=== PATIENT | female | born 1975 | race Caucasian/White ===

== ENCOUNTER 2020-04-17 10:37 | Outpatient (CLI) | payer SELFPAY ==
--- NOTE | 2020-04-17 10:47 | CT_ITS ---
WS: [id number] CT ABDOMEN AND PELVIS WITH CONTRAST HISTORY: ABDOMINAL PAIN, HEMATURIA, LEFT abdominal pain for 3 weeks. TECHNIQUE: Imaging performed of the abdomen and pelvis with IV contrast. Single phase imaging of the abdomen. Coronal and sagittal reformats are submitted. All CT scans at [facility] use at least one of these dose optimization techniques: automated exposure control; mA and/or kV adjustment per patient size (includes targeted exams where dose is matched to clinical indication); or iterativ e reconstruction. IV CONTRAST: Omnipaque 300; 95 mL IV. Oral contrast: No DLP: 1129.93 mGycm COMPARISON: None available. Lower thorax: Lung bases are clear. Heart is normal size. No hiatal hernia. Liver/biliary system: Normal size with no intrahepatic dilatation. Gallbladder: Normal. No gallstones or wall thickening. No pericholecystic fluid. Pancreas: Normal. Spleen: Normal. Adrenal glands: Normal RIGHT adrenal gland. Solid mass involving the LEFT adrenal gland measures 3.6 x 2.8 cm. Right kidney: Normal. Left kidney: There is a moderate staghorn calculus in the central renal pelvis causing a mild obstru ction. The largest component of the staghorn calculus is 13 x 22 mm. There are additional calcificati ons extending into the calyces of the lower pole. Ureter distal to this central calcification is norm al size. Aorta: Mild atherosclerosis with no aneurysm. Lymphadenopathy: None. Free fluid: None. GI tract: Normal appendix. No GI tract obstruction. Abdominal wall: Unremarkable abdominal wall. No hernia. Pelvis: There is a large soft tissue mass centered in the RIGHT uterus causing distortion of the endo metrium. This mass is nearly isodense to the adjacent myometrium. Mass measures 6.1 x 3.3 cm and is p robably a large fibroid. Both ovaries are identified and contain small follicles. Bones: Unremarkable. CT/CT abdomen pelvis w con* [id number] IMPRESSION: 1. Moderate-sized staghorn calculus in the LEFT renal pelvis and numerous calc ifications continue into the major and minor calyces of the lower pole. Staghor n calculus is causing a mild obstruction of the kidney with no adjacent inflamm atory changes. 2. Enlarged uterus. Probably a fibroid extending to the RIGHT measuring 8.1 x 3.3 cm. Recommend follow-up transvaginal pelvic ultrasound. 3. Solid mass LEFT adrenal gland. Statistically this is likely benign with no history of prior malignancy. Consider follow-up MRI adrenal protocol or CT prot ocol.
[2020-04-17] MEDS: iohexol 300 mg/mL 100 mL Btl IV (11:36)
== END 2020-04-17 10:38 | disposition home or self-care (01) ==
LOC: RADWPI 10:45
PROVIDERS: PCP Family Medicine; Visit Provider Family Medicine
DX: R10.9 Unspecified abdominal pain (principal); R31.9 Hematuria, unspecified; N20.0 Calculus of kidney; N85.2 Hypertrophy of uterus; D49.7 Neoplasm of unspecified behavior of endocrine glands and other parts of nervous system
CPT/HCPCS: 74177; Q9967

== ENCOUNTER 2020-04-23 07:42 | Outpatient (CLI) | payer SELFPAY ==
--- NOTE | 2020-04-23 07:50 | XRR_ITS ---
PROCEDURE INFORMATION: Exam: XR Abdomen, 1 View Exam date and time: 04/23/2020 8:03 AM Clinical indication: Pain and condition or disease; Kidney or ureter condition; Calculus (stone) in kidney; Other: Flank; Prior surgery; Surgery type: C cect TECHNIQUE: Imaging protocol: XR of the abdomen. Views: Frontal supine view of the abdomen. 1 View. COMPARISON: CT abdomen and pelvis 04/17/2020. FINDINGS: Gastrointestinal tract: Normal. No bowel dilation. Organs: Numerous calcifications overlie most likely the left renal shadow and a prominent, shaped larger calcification resides area medial to the left renal shadow likely at the left renal pelvis measuring 2.7 cm by 1.7 cm. Vasculature: Calcifications in the pelvis are suggestive of phleboliths. A punctate calcification resides 1.3 cm cranial to the upper left iliac bone demonstrated posteriorly at the gluteal level on comparison CT. Bones/joints: See Vasculature finding. XR/XR KUB [id number] IMPRESSION: Similar numerous left intrarenal calculi and large left renal pelvic calcification compared to the prior CT of 04/17/2020.
== END 2020-04-23 07:43 | disposition home or self-care (01) ==
PROVIDERS: PCP Family Medicine; Visit Provider Urology
DX: N20.0 Calculus of kidney (principal)
CPT/HCPCS: 74018; 87086

== ENCOUNTER → 2020-05-01 14:23 | Outpatient (BNVA) | payer SELFPAY | PROVIDERS: PCP Family Medicine; Visit Provider Urology | DX: Z20.822 Contact with and (suspected) exposure to COVID-19 (principal); N20.0 Calculus of kidney | CPT/HCPCS: 87635; 99211 ==

== ENCOUNTER 2020-05-04 11:48 | Day surgery (SDC) | payer SELFPAY ==
[2020-05-03 11:00] VITALS: BMI 31.0
--- NOTE | 2020-05-04 12:03 | XR_ITS ---
WS: [id number] KUB, AP view, 05/04/2020. Clinical Data: Preop left ESWL, stent Comparison: KUB, 04/23/2020. Findings: There are numerous small calcifications overlying the left inferior pole of the kidney. There is a st aghorn calculus in the left renal pelvis with greatest dimension of 2.8 cm unchanged. There are no ca lcifications overlying the right kidney. There are phleboliths in the true pelvis. XR/XR KUB [id number] Impression: No change in left renal and left renal pelvic calcifications.
[2020-05-04] MEDS: sodium chloride 0.9% 1,000 ML 30 ML IV (12:30)
--- NOTE | 2020-05-04 12:55 | ANES.PREANE2 ---
Pre-Anesthetic Assessment Pre-Anesthetic Assessment: Height/Weight: Height 1.63 m Weight 82.1 kg Preop Diagnosis: Left staghorn calculus Proposed Procedure: Operation Date: 05/04/20 13:25 Proposed Procedures p Cystoscopy(Not Applicable) - MD william Chapman Ureteral Stent Placement(Left) - MD william Chapman ESWL(Not Applicable) - MD william Chapman poss Ureteroscopy(Not Applicable) - MD william Chapman Laser Lithotripsy(Not Applicable) - Al Bonilla MD Was Beta Jass taken within 24 hours: Yes Last intake: Intake Last Liquid Date 05/04/20 Last Liquid Time 08:00 Last Solid Date 05/02/20 Last Solid Time 18:00 Social: Social History: Tobacco and No alcohol Exam: Pre-Anes Outpt Exam: alert, oriented x 3 and regular rate & rhythm Airway: Submandibular: WNL Cervical ROM: WNL MP: 2 Dentition: False Pulmonary: Pulmonary: COPD CV/HEM: CV/HEM: Arrythmia and HTN Metabolic: Metabolic: Morbid obesity Anesthetic Plan: ASA status: 3 Anesthesia: General Risk of > 500 ml blood loss (7ml/kg in children): No PFSH Anesthesia PFSH: Medical History H/O pilonidal cyst Left renal stone Surgical History H/O section S/P extracorporeal shock wave therapy Family History Mother , at age 64 Cancer lung Father , at age 78 Stroke Social History Smoking and tobacco status: current every day smoker Alcohol intake: never Marital status: Current occupational status: unemployed History of recent travel: No Female Reproductive History: Date of last menstrual period: 05/03/20 Data Anesthesia Cardiac Studies: No Data to Display
[2020-05-04 13:54] LABS: OR HCG Qualitative Urine Negative (Negative)
[2020-05-04 13:55] VITALS: BP 126/81; PULSE 67; RESP 18; TEMP 36.2; O2SAT 100
[2020-05-04] MEDS: levofloxacin-dextrose 5 % 500 MG/100 ML PREMIX 100 MG IV (16:41)
--- NOTE | 2020-05-04 16:51 | W.PM.OPSUD ---
Surgery/Procedure H&P Update DATE OF PROCEDURE: May 04, 2020 DATE H&P PERFORMED: 04/23/20 H&P UPDATE INFORMATION: I have reviewed H&P completed within last 30 days, I have examined patient prior to procedure, No changes to prior documentation and H&P is in [facility] EMR on date indicated PREOP DIAGNOSIS: Left staghorn calculus PLANNED PROCEDURE: Operation Date: 05/04/20 13:25 Proposed Procedures p Cystoscopy(Not Applicable) - MD william Chapman Ureteral Stent Placement(Left) - MD william Chapman ESWL(Not Applicable) - MD william Chapman poss Ureteroscopy(Not Applicable) - MD william Chapman Laser Lithotripsy(Not Applicable) - Al Bonilla MD
[2020-05-04 18:07] VITALS: BP 130/81; PULSE 81; RESP 17; TEMP 36.4; O2SAT 100
[2020-05-04 18:10] VITALS: BP 127/83; PULSE 78; RESP 14; O2SAT 100
--- NOTE | 2020-05-04 18:10 | P.OP_ITS ---
Operative Report Date of procedure: May 04, 2020 Pre-op Diagnosis: Left staghorn calculus with multiple smaller calyceal stones Post-op diagnosis: same Procedure Done: 1. Cystoscopy with left ureteral stent placement 2. Extracorporeal shockwave lithotripsy to left renal pelvic staghorn calculus Specimens removed/disposition: None Pathology: none sent Surgeon: Chad Facility Manager: Lithotripsy Chief Mechanical Officer: Kiran Tatum Anesthesia: General Estimated blood loss: None Urine output: Not measured Complications: None Findings: 2500 shocks administered to the large left renal pelvic staghorn calculus with good change. The entire complement of shocks was used for the stone and none of the calyceal/infundibular stones were treated. 7 Maltese by 24 cm double-pigtail stent left indwelling. No string Condition: stable Brief History: Mrs. Murray is a very pleasant 44-year-old white female who was discovered to have a large left renal pelvic staghorn calculus with multiple (15-20) smaller stones in the middle and lower pole infundibulum/calyceal system on the left. She was admitted for stent placement and ESWL after thorough discussion of all the options including endoscopy (retrograde and antegrade) versus ESWL with stent. We did review that based on the stone burden she was likely to require at least 2 treatments may be more in potentially multiple modalities to clear her stones. Procedure: After routine preoperative evaluation examination and obtaining of informed consent she was taken to the operating suite on 05/04/2020 where general anesthesia was administered without difficulty after appropriate timeout was performed, SCDs confirmed to be functioning, preoperative antibiotics administered, beta-yulisa protocol confirmed. Prepped and draped in the usual sterile fashion in dorsolithotomy position paying careful attention to avoiding pressure points. 21 Maltese cystoscope with 30 degree lens was introduced into the urethral meatus and advanced into the bladder to videoscopy. The bladder was systematically examined and found to be within normal limits. There were no stones. A flexible tip guidewire was then easily advanced up the left ureter bypassing the stone and curling in the upper pole calyx. A 7 Maltese by 24 cm double-pigtail stent was then advanced over the guidewire through the cystoscope up the left ureter beyond the stone curling in the appropriate position in the upper renal pelvis above the stone as well as distally in the bladder. She was then repositioned in supine position with the staghorn calculus of the focal point utilizing biplanar fluoroscopy and the shock head positioned posteriorly. A total of 2500 shocks were administered to the staghorn calculus with excellent change. She was placed in slight Trendelenburg, the intensity was begun at 1 and advanced to 4, a 3-minute pause was conducted after approximately 300 shocks, and real-time fluoroscopic monitoring with position changes as indicated. By the completion of the procedure (conducted at a rate of 60) the stone was dramatically changed. None of the smaller calyceal/infundibular stones were treated due to the full complement of shocks being administered to the staghorn calculus. She tolerated procedure well without complications and was awakened in the operating room and returned to the care of room in stable condition. PLANS: 1. Follow-up late next week with KUB. 2. Strain and bring any specimens passed. Call for any concerns or questions.
[2020-05-04 18:15] VITALS: BP 109/63; PULSE 72; RESP 18; TEMP 36.3; O2SAT 97
--- NOTE | 2020-05-04 18:17 | ANE.PACU2 ---
Inpatient post-anesthesia follow up: Airway intact: Yes Vital signs: Temperature 97.6 F Pulse Rate 78 Respiratory Rate 14 Blood Pressure 127/83 Pulse Oximetry 100 Oxygen Delivery Me thod Simple Mask Oxygen Flow Rate 8 Fraction of Inspir ed Oxygen Hydration adequate: Yes Nausea and vomiting: No Pain level: 1 Additional Comments: Sedated
[2020-05-04 18:20] VITALS: BP 139/65; PULSE 89; RESP 16; O2SAT 93
--- NOTE | 2020-05-04 18:24 | SUR.PHASEI ---
1817 PT AWAKE ALERT EATING ICE CHIPS DENIES PAIN AN NAUSEA PT WANTS SPRITE TO SIP ON , REPORT TO OPS HANDOFF AT BEDSIDE.
[2020-05-04] MEDS: ondansetron 2 mg/ML SDV 2 mL 4 MG IVP ×2 (18:40→19:08)
[2020-05-04 18:47] VITALS: BP 129/72; PULSE 67; RESP 16; TEMP 36.1; O2SAT 96
[2020-05-04] MEDS: diphenhydrAMINE 50 mg/mL SDV 1mL 12.5 MG IVP (19:00)
== END 2020-05-04 19:18 | disposition home or self-care (01) ==
PROVIDERS: Anesthesiology; PCP Family Medicine; Visit Provider Urology
PROC: 0TJB8ZZ Inspection of Bladder, Via Natural or Artificial Opening Endoscopic (ICD-10-PCS; CPT 52000; principal; 2020-05-04 13:25)
PROC: (CPT 50605; 2020-05-04 13:25)
PROC: (CPT 50590; 2020-05-04 13:25)
DX: N20.2 Calculus of kidney with calculus of ureter (principal); J44.9 Chronic obstructive pulmonary disease, unspecified; I10 Essential (primary) hypertension; E66.01 Morbid (severe) obesity due to excess calories; Z68.31 Body mass index [BMI] 31.0-31.9, adult; F17.210 Nicotine dependence, cigarettes, uncomplicated; Z79.82 Long term (current) use of aspirin
CPT/HCPCS: 50590; 52332; 74018; 84703; C2625; J1100; J1200; J1956; J2405; J2704; J3010; J3490; J7030

== ENCOUNTER 2020-05-25 08:05 | Outpatient (CLI) | payer SELFPAY ==
--- NOTE | 2020-05-25 08:00 | XR_ITS ---
WS: [id number] KUB, AP view, 05/25/2020 Clinical Data: stone Comparison: KUB, 05/04/2020. Findings: There is a left ureteral catheter in good position. The staghorn calculus is no longer present. There is a small fragment adjacent to the proximal ureteral catheter. The smaller fragments in the inferio r pole of the left kidney are no longer present. There are 2 moderate sized fragments which may be fr om the staghorn calculus overlying the kidney. In the distal left ureter there are multiple small pradeep cifications which are probably from the fragmented staghorn calculus. XR/XR KUB [id number] Impression: 1. Satisfactory position of left ureteral catheter. 2. Fewer fragments overlying left kidney which may be from the fragmented stagh orn calculus. 3. Small fragments in the distal left ureter adjacent to the ureteral catheter.
== END 2020-05-25 08:06 | disposition home or self-care (01) ==
LOC: RAD 08:08
PROVIDERS: PCP Family Medicine; Visit Provider Urology
DX: N20.0 Calculus of kidney (principal); Z96.0 Presence of urogenital implants
CPT/HCPCS: 74018; 81003; 82365; 88300

== ENCOUNTER → 2020-05-28 10:12 | Outpatient (BNVA) | payer SELFPAY | PROVIDERS: PCP Family Medicine; Visit Provider Internal Medicine Cardiovascular Disease | DX: Z20.822 Contact with and (suspected) exposure to COVID-19 (principal); N20.0 Calculus of kidney | CPT/HCPCS: 87635 ==

== ENCOUNTER 2020-06-01 11:21 | Day surgery (SDC) | payer SELFPAY ==
[2020-05-31 15:33] VITALS: BMI 31.7
[2020-06-01] VITALS (8 sets, daily range): BP systolic 122–154; BP diastolic 65–83; PULSE 60–84; RESP 14–18; TEMP 36.6–36.9; O2SAT 93–100
--- NOTE | 2020-06-01 11:42 | XR_ITS ---
WS: [id number] KUB, AP view, 06/01/2020 Clinical Data: Preop ESWL Comparison: KUB, 05/25/2020. Findings: There is still a calculus at the inferior pole of the left kidney. There is also a calculus adjacent to the proximal left ureteral stent. There are multiple calculi adjacent to the distal left ureteral stent. The ureteral stent appears in good position. There are phleboliths in the true pelvis. XR/XR KUB [id number] Impression: 1. Left ureteral stent. 2. Multiple left renal and ureteral calculi unchanged except there is only one inferior pole left renal calculus instead of 2.
[2020-06-01 11:51] LABS: OR HCG Qualitative Urine Negative (Negative)
[2020-06-01 12:27] LABS: Glucose Point of Care 225 mg/dL (70-110)
[2020-06-01] MEDS: sodium chloride 0.9% 1,000 ML 30 ML IV (12:28)
--- NOTE | 2020-06-01 12:43 | ANES.PREANE2 ---
Pre-Anesthetic Assessment Pre-Anesthetic Assessment: Height/Weight: Height 1.63 m Weight 83.915 kg Temp Pulse Resp BP Pulse Ox 98.1 F 73 16 145/83 100 06/01/20 11:50 06/01/20 11:50 06/01/20 11:50 06/01/20 11:50 06/01/20 11:50 Preop Diagnosis: Left ureteral and renal calculi Proposed Procedure: Operation Date: 06/01/20 13:00 Proposed Procedures p Cystoscopy 21187 03114 N20.0(Not Applicable) - Al Bonilla MD s Ureteral Stent Exchange(Not Applicable) - Al Bonilla MD s ESWL(Not Applicable) - Al Bonilla MD Was Beta Jass taken within 24 hours: Yes Last intake: Intake Last Liquid Date 05/31/20 Last Liquid Time 07:30 Last Solid Date 05/30/20 Last Solid Time 19:00 Social: Social History: Tobacco and No alcohol Exam: Pre-Anes Outpt Exam: alert, oriented x 3 and regular rate & rhythm Airway: Submandibular: WNL Cervical ROM: WNL MP: 2 Dentition: False Pulmonary: Pulmonary: COPD CV/HEM: CV/HEM: HTN Metabolic: Metabolic: DM Anesthetic Plan: ASA status: 3 Anesthesia: General Risk of > 500 ml blood loss (7ml/kg in children): No Meds/Allergies Current Medications: Current Medications Generic Name Dose Route Start Last Admin Trade Name Freq PRN Reason Stop Dose Admin Sodium Chloride 1,000 mls @ 30 ml s/hr 06/01/20 12:00 06/01/20 12:28 Sodium Chloride 0.9% IV 06/02/20 11:59 30 mls/hr .Q24H ALEXYS Administration PFSH Anesthesia PFSH: Medical History (Updated 05/25/20 @ 09:40 by Al Bonilla MD) Diabetes H/O pilonidal cyst Left renal stone Surgical History H/O section S/P extracorporeal shock wave therapy Family History Mother , at age 64 Cancer lung Father , at age 78 Stroke Social History Smoking and tobacco status: current every day smoker Alcohol intake: never Marital status: Current occupational status: unemployed History of recent travel: No Female Reproductive History: Date of last menstrual period: 05/03/20 Data Anesthesia Other Labs: Laboratory Results - last 48 hr 06/01/20 06/01/20 11:49 12:24 POC Glucose 225 H Urine HCG, Qual Negative Cardiac Studies: No Data to Display
[2020-06-01] MEDS: levofloxacin-dextrose 5 % 500 MG/100 ML PREMIX 100 MG IV (13:04)
--- NOTE | 2020-06-01 13:04 | P.HPUD_ITS ---
Surgery/Procedure H&P Update DATE OF PROCEDURE: June 01, 2020 DATE H&P PERFORMED: 05/25/20 H&P UPDATE INFORMATION: I have reviewed H&P completed within last 30 days, I have examined patient prior to procedure, No changes to prior documentation and H&P is in [facility] EMR on date indicated PREOP DIAGNOSIS: Left ureteral and renal calculi PLANNED PROCEDURE: Operation Date: 06/01/20 13:00 Proposed Procedures p Cystoscopy [id number] N20.0(Not Applicable) - Al Bonilla MD s Ureteral Stent Exchange(Not Applicable) - Al Bonilla MD s ESWL(Not Applicable) - Al Bonilla MD
--- NOTE | 2020-06-01 14:45 | PM.OP ---
Operative Report Date of procedure: June 01, 2020 Pre-op Diagnosis: Left ureteral and renal calculi Post-op diagnosis: same Procedure Done: 1. Extracorporeal shockwave lithotripsy to left renal and ureteral calculi fragments 2. Exchange left ureteral stent (7 Indonesian by 24 cm double-pigtail without string) Pathology: none sent Surgeon: Chad Report Analyst: Kiran Tatum Anesthesia: General Estimated blood loss: Minimal Urine output: Not measured Complications: None Findings: Excellent change of the renal stone fragments with ESWL. Approximately 1800 shocks administered. Shockwave therapy was administered along the length of the stent from the mid sacral level down to the distal ureter with good change noted to the multiple small stone fragments along the stent. Condition: stable Disposition: PACU Brief History: Mrs. Murray is a very pleasant 45-year-old white female with a history of large left renal pelvic stone and multiple small stones (numbering approximately 20-25) in the mid and lower pole infundibulum) previously treated with ESWL with excellent change to the renal pelvic stone. On follow-up KUB she had only a couple fragments remaining in the renal pelvic area and 100s of smaller stone fragments along the left ureteral stent from approximately the mid sacrum down to the distal ureter. It was decided to proceed with repeat ESWL to try to complete the job. We also reviewed that it might be required still for an additional treatment or a different modality to complete. Procedure: After routine preoperative evaluation examination and obtaining of informed consent she was taken to the operating suite on 06/01/2020 where general anesthesia was administered without difficulty after appropriate timeout was performed, SCDs confirmed to be functioning, preoperative antibiotics administered, beta-yulisa protocol confirmed. Positioned on the Dornier unit in supine position such that the renal stones were located the focal point with the shock head positioned posteriorly. Shockwave was initiated to the 2 fragments near the UPJ. There was early change. After about 300 shocks a several minute pause was conducted. A total of about 1800 shocks were administered to the renal area with good change. At that point the shock head was positioned anteriorly and the stone fragments in the more proximal aspect of the ureter in the area of the sacrum were targeted. Focus was easily obtained. The focal point was moved up and down the ureter several times with good change noted along the stream of small stones. About 7504-8067 shocks were administered in total to the ureteral components. She was then repositioned in dorsolithotomy position paying careful attention to avoiding pressure points. Prepped and draped in usual sterile fashion. 21 Indonesian cystoscope with 30 degree lens was introduced to urethra meatus and advanced into the bladder under videoscopy. The bladder was systematically examined. The stent was in good position with minimal encrustation. Flexible tip guidewire was then advanced up the left ureter next to the stent and curling in the upper pole calyx area. Stent was removed with grasping forceps with easy uncurling of the proximal end. A 7 Indonesian by 24 cm double-pigtail stent was then easily advanced up the left ureter over the guidewire into appropriate position as confirmed via fluoroscopy and cystoscopy. The bladder was drained and the procedure was completed. Tolerated the procedure well without complications and was awakened in the operating room and returned to the PACU in stable condition. PLANS: 1. Anticipate discharge from outpatient surgery today with follow-up next week 2. KUB on return to clinic 3. Continue straining urine.
--- NOTE | 2020-06-01 15:54 | ANE.PACU2 ---
Inpatient post-anesthesia follow up: Airway intact: Yes Vital signs: Temperature 97.9 F Pulse Rate 60 Respiratory Rate 18 Blood Pressure 136/70 Pulse Oximetry 97 Oxygen Delivery Me thod Room Air Oxygen Flow Rate Fraction of Inspir ed Oxygen Hydration adequate: Yes Nausea and vomiting: No Pain level: 2 Mental status: Baseline
== END 2020-06-01 16:11 | disposition home or self-care (01) ==
PROVIDERS: Anesthesiology; PCP Family Medicine; Visit Provider Urology
PROC: 0TJB8ZZ Inspection of Bladder, Via Natural or Artificial Opening Endoscopic (ICD-10-PCS; CPT 52000; principal; 2020-06-01 13:00)
PROC: (CPT 50590; 2020-06-01 13:00)
PROC: (CPT 50590; 2020-06-01 13:00)
DX: N20.2 Calculus of kidney with calculus of ureter (principal); J44.9 Chronic obstructive pulmonary disease, unspecified; I10 Essential (primary) hypertension; E11.9 Type 2 diabetes mellitus without complications; F17.210 Nicotine dependence, cigarettes, uncomplicated; Z79.82 Long term (current) use of aspirin
CPT/HCPCS: 50590; 52332; 36416; 74018; 82962; 84703; 96365; C2625; J1100; J1956; J2250; J2405; J2550; J2704; J2710; J3010; J3490; J7030

== ENCOUNTER 2020-06-08 08:10 | Outpatient (CLI) | payer SELFPAY ==
--- NOTE | 2020-06-08 08:00 | XR_ITS ---
WS: [id number] XR KUB [id number] REASON FOR EXAM: renal stone FINDINGS: Left ureteral stent. Compared to the previous examination of 06/01/2020, the dominant calculus overlying the lower pole of the left kidney is no longer identifiable. There continues to be small stone fragments associated with the left ureteral stent at the level of t he ureteral pelvic junction. There continues to be long segment of distal ureter containing small calculus fragments along the ian nt, extending from the mid sacral level to the ureteral vesicle junction. This is not changed signifi cantly compared to the previous study. No calculi There are multiple calcifications within the pelvis. There are 2 possibly 3 calcific densities that a re not readily identifiable on the previous examination in the low midline of the pelvis. These could represent small calculus fragments within the bladder. XR/XR KUB [id number] IMPRESSION: Left ureteral stent and urinary tract calculi with interval change as above.
== END 2020-06-08 08:11 | disposition home or self-care (01) ==
LOC: RAD 08:12
PROVIDERS: PCP Family Medicine; Visit Provider Urology
DX: N20.0 Calculus of kidney (principal); Z96.0 Presence of urogenital implants
CPT/HCPCS: 74018; 81003

== ENCOUNTER 2020-06-20 14:14 | Outpatient (CLI) | payer SELFPAY ==
--- NOTE | 2020-06-20 14:15 | XR_ITS ---
WS: [id number] KUB, 06/20/2020 Clinical Data: N20.0 - Calculus of kidney Comparison: KUB, 06/08/2020. Findings: There is a left ureteral stent. There are calcifications adjacent to the stent both in the proximal a nd the distal portion. There are several calcifications in the true pelvis but no change from the previous study. XR/XR KUB [id number] Impression: No change in left ureteral stent and adjacent small calcifications.
== END 2020-06-20 14:15 | disposition home or self-care (01) ==
LOC: RAD 14:19
PROVIDERS: PCP Family Medicine; Visit Provider Urology
DX: N20.0 Calculus of kidney (principal); Z96.0 Presence of urogenital implants
CPT/HCPCS: 74018; 81003; 87635

== ENCOUNTER 2020-06-25 12:05 | Day surgery (SDC) | payer SELFPAY ==
[2020-06-22 13:47] VITALS: BMI 31.7
[2020-06-25] VITALS (8 sets, daily range): BP systolic 130–162; BP diastolic 64–85; PULSE 58–80; RESP 16–18; TEMP 36.2–36.6; O2SAT 95–100
--- NOTE | 2020-06-25 12:10 | XRR_ITS ---
PROCEDURE INFORMATION: Exam: XR Abdomen Exam date and time: 06/25/2020 12:20 PM Age: 45 years old Clinical indication: Condition or disease; Kidney or ureter condition; Calculus (stone) in ureter; Additional info: Residual left ureteral calculi TECHNIQUE: Imaging protocol: XR of the abdomen. Views: Frontal supine view of the abdomen. 1 View. COMPARISON: CR XR KUB [id number] 06/20/2020 2:31 PM FINDINGS: Tubes, catheters and devices: A left ureteral stent projects in satisfactory position. Gastrointestinal tract: Normal. No bowel dilation. Vasculature: Multiple calcifications are present along the left ureteral stent. They have mildly decreased in number along the distal aspect of the stent. Bones/joints: Unremarkable. XR/XR KUB [id number] IMPRESSION: 1. Satisfactory left ureteral stent position. 2. Multiple calcifications project along the left ureteral stent. They have mildly decreased in number along the distal aspect since previous study.
[2020-06-25 12:54] LABS: Glucose Point of Care 199 mg/dL (70-110)
[2020-06-25 12:56] LABS: OR HCG Qualitative Urine Negative (Negative)
--- NOTE | 2020-06-25 13:11 | P.ANESASSM_ITS ---
Pre-Anesthetic Assessment Pre-Anesthetic Assessment: Height/Weight: Height 1.63 m Weight 83.915 kg Temp Pulse Resp BP Pulse Ox 97.6 F 60 16 162/78 99 06/25/20 12:42 06/25/20 12:42 06/25/20 12:42 06/25/20 12:42 06/25/20 12:42 Preop Diagnosis: Residual left ureteral calculi Proposed Procedure: Operation Date: 06/25/20 13:35 Proposed Procedures p Cystoscopy [id number] N20.0(Not Applicable) - Al Bonilla MD s Retrograde Pyelogram(Not Applicable) - MD william Chapman Ureteroscopy(Not Applicable) - MD william Chapman Laser Lithotripsy(Not Applicable) - MD william Chapman Ureteral Stent Placement(Not Applicable) - Al Bonilla MD Familial anesthetic complications: ponv Last intake: Intake Last Liquid Date 06/25/20 Last Liquid Time 07:30 Last Solid Date 06/24/20 Last Solid Time 21:30 Social: Social History: Tobacco and No alcohol Exam: Pre-Anes Outpt Exam: alert, oriented x 3, clear to auscultation bilatera lly and regular rate & rhythm Airway: Cervical ROM: WNL MP: 4 Dentition: Full CV/HEM: CV/HEM: HTN Anesthetic Plan: ASA status: 2 Anesthesia: General Risk of > 500 ml blood loss (7ml/kg in children): No PFSH Anesthesia PFSH: Medical History Diabetes H/O pilonidal cyst Left renal stone Surgical History H/O section S/P extracorporeal shock wave therapy Family History Mother , at age 64 Cancer lung Father , at age 78 Stroke Social History Smoking and tobacco status: current every day smoker Alcohol intake: never Marital status: Current occupational status: unemployed History of recent travel: No Female Reproductive History: Date of last menstrual period: 05/03/20 Data Anesthesia Other Labs: Laboratory Results - last 48 hr 06/25/20 06/25/20 12:33 12:52 POC Glucose 199 H Urine HCG, Qual Negative Cardiac Studies: No Data to Display
[2020-06-25] MEDS: midazolam 1 mg/mL INJ 2 mL 2 MG IVP (13:15)
[2020-06-25] MEDS: sodium chloride 0.9% 1,000 ML 30 ML IV (13:19)
--- NOTE | 2020-06-25 14:24 | W.PM.OPSUD ---
Surgery/Procedure H&P Update DATE OF PROCEDURE: June 25, 2020 DATE H&P PERFORMED: 06/20/20 H&P UPDATE INFORMATION: I have reviewed H&P completed within last 30 days, I have examined patient prior to procedure, No changes to prior documentation and H&P is in [facility] EMR on date indicated PREOP DIAGNOSIS: Residual left ureteral calculi PLANNED PROCEDURE: Operation Date: 06/25/20 13:35 Proposed Procedures p Cystoscopy 72885 [id number] N20.0(Not Applicable) - Al Bonilla MD s Retrograde Pyelogram(Not Applicable) - MD william Chapman Ureteroscopy(Not Applicable) - MD william Chapman Laser Lithotripsy(Not Applicable) - Al Bonilla MD s Ureteral Stent Placement(Not Applicable) - Al Bonilla MD
[2020-06-25] MEDS: levofloxacin-dextrose 5 % 500 MG/100 ML PREMIX 100 MG IV (14:43)
[2020-06-25] MEDS: ondansetron 2 mg/ML SDV 2 mL 4 MG IVP (16:48)
--- NOTE | 2020-06-25 16:59 | P.OP_ITS ---
Operative Report Date of procedure: June 25, 2020 Pre-op Diagnosis: Residual left ureteral calculi, adherent renal calculus to left renal pelvi Post-op diagnosis: same Post-op Findings: Approximately 35 to 40 stone fragments removed with basketing and grasping forceps from the left ureter. None required laser lithotripsy but it was quite arduous to get the ball out. A fairly sizable chunk of over the original stone was adherent to the left UPJ area but it was completely fragmented with laser lithotripsy and the sidewall of the renal pelvis was cleared of stone. Procedure Done: 1. Cystoscopy extraction of large number of left ureteral stone fragments 2. Left ureteroscopy with laser lithotripsy of UPJ stone fragment 3. Replacement of left ureteral stent (7 Icelandic by 24 Implants: Left ureteral stent Pathology: Stone fragments Surgeon: Chad Anesthesia: General Estimated blood loss: Minimal Urine output: not measured Complications: None Findings: Greater than 30 stone fragments in the ureter with most of them being over the sacral level and requiring basketing to remove. A few of them came out with the stent removal but many remained in the very inflamed mid ureter. All of these were extracted with a combination of basketing and grasping forceps. The ureter was very inflamed at this spot. There was an adherent chunk of the original stone on the left renal pelvic sidewall at the UPJ as expected. Laser lithotripsy was utilized to fragment this remaining piece into small pieces that would be easily passable. Condition: stable Disposition: PACU Brief History: Ms. Murray is a very pleasant 45-year-old white female who originally presented with a large left renal pelvic stone and probably close to 30 smaller stones in the mid and lower pole infundibulum and calyx. To date she has undergone 2 ESWL's with absolutely dramatic change. She has passed a large number of fragments from the ureter but on follow-up KUB she still had quite a few remaining. There is also a persistent calcification that appeared to probably be an adherent rim of calcification at the UPJ. It had diminished somewhat after the second treatment but was still quite prominent. The plan today was to perform a cystoscopy ureteral stent removal ureteroscopy with removal of fragments that did not flush out with the stent and ureteroscopy laser lithotripsy of the residual fragment at the UPJ. Procedure: After routine preoperative evaluation examination and obtaining of informed consent she was taken to the operating suite on 06/25/2020 where general anesthesia was administered without difficulty. There was a significant delay due to staffing but also multiple emergency add-ons that bumped this case. Appropriate timeout was performed, SCDs confirmed to be functioning, preoperative antibiotics administered, beta-yulisa protocol confirmed. Prepped and draped in usual sterile fashion in dorsolithotomy position paying careful attention to avoiding pressure points. 21 Icelandic cystoscope with 30 degree lens was introduced into the urethra meatus and advanced into the bladder under videoscopy. The distal aspect of the stent was secured with grasping forceps and withdrawn to the urethral meatus where a guidewire was passed up it without difficulty. The stent was then removed without difficulty with fluoroscopic monitoring showing good uncurling of the proximal end. The wire was secured to the drapes as a safety wire. Multiple stones were flushed out of the bladder that had come out with the guidewire. A second guidewire was attempted to be passed but would not easily bypassed the mid ureter where there was previously seen to be a collection of stones. A 7 Icelandic offset semirigid ureteroscope was advanced up the ureter and sure enough there was a large number of smaller to moderate sized stone fragments and these were individually removed with basketing and grasping forceps one by one. I expect that greater than 30 stone fragments were removed and this took quite a while. The area where the largest collection was was very inflamed but was bypassable with the scope. Proximal to that area there were another 5 or 6 of these fragments that were removed. This took about an hour and 10 minutes to do. A second guidewire was then passed as a working wire and the flexible ureteroscope was then advanced over the working wire up into the renal pelvis. As expected there was a chunk of stone adherent to the UPJ/renal pelvic wall and this was lasered with a 365 ?m thulium superpulse laser fiber off of the wall into small pieces that should easily pass. Final inspection showed no residual fragments of consequence. The inflamed ureter was again confirmed and it was clearly felt that the stent would be of benefit for healing of this area now that the stone fragments were out. The cystoscope was then backloaded over the safety wire and a 7 Icelandic by 24 cm double-pigtail stent was advanced over the guidewire through the cystoscope into appropriate position as confirmed via fluoroscopy and cystoscopy. All the fragments were flushed free from the bladder and the procedure was completed. She did tolerate the procedure well without complications and was awakened in the operating room and returned to the care of room in stable condition. PLANS: 1. Anticipate discharge from outpatient surgery 2. Follow-up in approximately 2 weeks with a KUB and hopefully remove the stent at that time. Reviewed findings with her .
--- NOTE | 2020-06-25 18:12 | ANE.PACU2 ---
Inpatient post-anesthesia follow up: Airway intact: Yes Vital signs: Temperature 98 F Pulse Rate 58 Respiratory Rate 16 Blood Pressure 149/64 Pulse Oximetry 98 Oxygen Delivery Me thod Room Air Oxygen Flow Rate 6 Fraction of Inspir ed Oxygen Hydration adequate: Yes Nausea and vomiting: No Pain level: 2 Mental status: Baseline
== END 2020-06-25 17:55 | disposition home or self-care (01) ==
PROVIDERS: PCP Family Medicine; Visit Provider Urology
PROC: 0TJB8ZZ Inspection of Bladder, Via Natural or Artificial Opening Endoscopic (ICD-10-PCS; CPT 52000; principal; 2020-06-25 13:35)
PROC: 0TJ98ZZ Inspection of Ureter, Via Natural or Artificial Opening Endoscopic (ICD-10-PCS; CPT 52351; 2020-06-25 13:35)
PROC: (CPT 52356; 2020-06-25 13:35)
PROC: (CPT 52356; 2020-06-25 13:35)
DX: N20.2 Calculus of kidney with calculus of ureter (principal); I10 Essential (primary) hypertension; F17.210 Nicotine dependence, cigarettes, uncomplicated
CPT/HCPCS: 52356; 36416; 74018; 81025; 82365; 82962; 84703; 88300; 96365; 96374; C2625; J1100; J1956; J2250; J2405; J2704; J3010; J3490; J7030

== ENCOUNTER 2020-07-10 07:33 | Outpatient (CLI) | payer SELFPAY ==
--- NOTE | 2020-07-10 07:30 | XRR_ITS ---
PROCEDURE INFORMATION: Exam: XR Abdomen Exam date and time: 07/10/2020 7:43 AM Age: 45 years old Clinical indication: Condition or disease; Kidney or ureter condition; Calculus (stone) in kidney; Prior surgery; Surgery type: Kidney stent; Additional info: N20.0 - calculus of kidney TECHNIQUE: Imaging protocol: XR of the abdomen. Views: Frontal supine view of the abdomen. 1 View. COMPARISON: CR XR KUB [id number] 06/25/2020 12:18 PM FINDINGS: Tubes, catheters and devices: A left ureteral stent projects in satisfactory position. Nearly all of the left ureteral calculi seen on the previous radiograph have cleared though there are just a few remaining punctate calculi lying along the distal aspect of the left ureteral stent. Gastrointestinal tract: Normal. No bowel dilation. Bones/joints: Unremarkable. XR/XR KUB [id number] IMPRESSION: 1. Satisfactory left ureteral stent position. 2. Nearly all of the tiny left ureteral calculi seen on previous study have cleared though just a few faint punctate calculi remain along the distal ureteral stent.
== END 2020-07-10 07:34 | disposition home or self-care (01) ==
LOC: RAD 07:38
PROVIDERS: PCP Family Medicine; Visit Provider Urology
DX: N20.2 Calculus of kidney with calculus of ureter (principal); Z96.0 Presence of urogenital implants
CPT/HCPCS: 74018; 81003

== ENCOUNTER → 2020-08-15 09:16 | Outpatient (BNVA) | payer SELFPAY | PROVIDERS: PCP Family Medicine; Visit Provider Urology | DX: N20.9 Urinary calculus, unspecified (principal) | CPT/HCPCS: 80048; 81003; 82131; 82140; 82340; 82436; 82507; 82570; 83735; 83935; 84100; 84300; 84550 ==

== ENCOUNTER 2020-10-30 21:51 | Emergency (ER) | payer SELFPAY ==
[2020-10-30 22:01] VITALS: BP 146/91; PULSE 67; RESP 18; TEMP 36.4; O2SAT 100; BMI 26.4
--- NOTE | 2020-10-30 22:20 | XRR_ITS ---
PROCEDURE INFORMATION: Exam: XR Chest Exam date and time: 10/30/2020 10:20 PM Age: 45 years old Clinical indication: Shortness of breath; Additional info: Chest pain TECHNIQUE: Imaging protocol: XR of the chest. Views: 1 view. COMPARISON: CR Chest 2 views* [id number] 12/30/2016 7:47 PM FINDINGS: Lungs: Unremarkable. No consolidation. Pleural spaces: Unremarkable. No pleural effusion. No pneumothorax. Heart/Mediastinum: Unremarkable. No cardiomegaly. Bones/joints: Unremarkable. XR/XR chest 1V portable [id number] IMPRESSION: No acute findings.
--- NOTE | 2020-10-30 22:20 | ECG_ITS ---
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 Measurements Intervals [place] Rate: 66 P: 55 NC: 153 QRS: -60 QRSD: 130 T: 57 QT: 427 QTc: 449 Interpretive Statements SINUS RHYTHM MARKED LEFT AXIS DEVIATION [QRS AXIS < -30] LEFT BUNDLE BRANCH BLOCK [120+ ms QRS DURATION, 80+ ms Q/S IN V1/V2, 85+ ms R IN I/aVL/V5/V6] Compared to ECG 12/31/2016 15:38:14 No significant changes Electronically Signed On 11-01-2020 7:40:30 CDT by Shoshana Lenz M.D. [id number] f
--- NOTE | 2020-10-30 23:08 | W.ED.ANXIETY ---
HPI - Anxiety General: Chief Complaint: Anxiety Stated Complaint: Heart Palpatations Time Seen by Provider: 10/30/20 22:37 History of Present Illness: HPI narrative: Patient is a 45-year-old female comes to the ED with panic attack and elevated blood pressure. Patient recently lost a lot of weight and her blood pressure has improved and her PCP took her off all of her blood pressure medications approximately 6 days ago. Today she had a blood pressure of a systolic in the 160s and diastolic in the 90s. She started getting worried and anxious about the elevated blood pressure and developed a panic attack with some heart palpitations. Patient took a dose of her metoprolol before coming to the ED. Her symptoms have completely resolved upon arrival to the ED. She denies any current chest pain or heart palpitations. Denies any history of A. fib or any other heart arrhythmia. Associated symptoms: Reports palpitations; Deny chest pain, chills, fever(s), headache(s), nausea or vomiting Review of Systems Const: Denies: fever(s), chills or fatigue Eyes: Denies: change in vision or eye discomfort ENMT: Denies: throat pain, odynophagia, nasal discharge or nasal congestion Card: Reports: palpitations; Denies: chest pain, edema, swelling of feet/ankles, dyspnea on exertion or orthopnea Resp: Denies: dyspnea, productive cough or non-productive cough GI: Denies: abdominal pain, nausea, vomiting, diarrhea, constipation or hematochezia : Denies: flank pain, dysuria or hematuria Musc: Denies: neck pain, back pain or extremity swelling Skin/Breast: Denies: rash or new lesions Neuro: Denies: headache(s), numbness in extremities or weakness in extremities Psych: Reports: panic attacks (episode of panic attack resolved upon arrival to ED) PFSH ED PFSH: Medical History Diabetes H/O pilonidal cyst Left renal stone Surgical History H/O section S/P extracorporeal shock wave therapy Family History Mother , at age 64 Cancer lung Father , at age 78 Stroke Social History Smoking and tobacco status: current every day smoker Alcohol intake: never Marital status: Current occupational status: unemployed History of recent travel: No Female Reproductive History: Date of last menstrual period: 05/03/20 Physical Exam Narrative: EXAM NARRATIVE: Patient is a 45-year-old female appears nontoxic and in no acute distress or pain. Const: COMMON NORMALS: no acute distress, patient oriented x3, healthy appearing and alert GENERAL APPEARANCE: cooperative and comfortable HENMT: COMMON NORMALS: normocephalic HEAD & SCALP: normocephalic MOUTH: Normal oral and palatal mucosa present THROAT: posterior oropharynx normal and uvula midline Neck/C-Spine: COMMON NORMALS: supple GENERAL: Yes normal visual inspection Resp: COMMON NORMALS: normal respiratory effort, No retractions, No use of accessory muscles and clear to auscultation bilaterally AUSCULTATION: clear to auscultation bilaterally Cardio: COMMON NORMALS: regular rate, regular rhythm, S1 normal heart sound present, S2 normal heart sound present, No gallops present (Cardio), No clicks present (Cardio), No murmurs present (Cardio) and Peripheral pulses 2+ throughout RATE: regular rate RHYTHM: regular rhythm HEART SOUNDS: S1 normal heart sound present and S2 normal heart sound present PERIPHERAL PULSES: Peripheral pulses 2+ throughout GI: COMMON NORMALS: Normal to inspection, nondistended, normoactive bowel sounds present, Soft to palpation, non-tender and no masses PALPATION: Yes Soft to palpation : COMMON NORMALS: Yes no CVA tenderness BLADDER/KIDNEY EXAM: Yes no CVA tenderness Back/Pelvis: COMMON NORMALS: no CVA tenderness Extremity: COMMON NORMALS: normal to inspection Neuro: COMMON NORMALS: patient oriented x3 and moves all extremities SENSORIUM/ORIENTATION: Yes alert Skin: GENERAL SKIN EXAM: dry skin Course Vital Signs: Vital signs: Vital Signs Temperature 97.6 F 10/30/20 22:01 Pulse Rate 67 10/31/20 02:08 Respiratory Rate 18 10/31/20 02:08 Blood Pressure 144/81 10/31/20 02:08 Pulse Oximetry 99 10/31/20 02:08 MDM - Anxiety MDM Narrative: Medical decision making narrative: Patient is a 45-year-old female comes to the ED with elevated blood pressure, heart palpitations and acute anxiety. Patient says when she was checking her blood pressure saw that it was elevated (160s/90s) and she got stressed and anxious about blood pressure reading and then started developing anxiety attack with some chest pain. Patient took her metoprolol before coming to the ED and says that her symptoms completely resolved upon arrival. Patient is asymptomatic while here in the ED and her vitals are stable. Blood pressure 146/91. Troponin negative, labs unremarkable and EKG showed normal sinus rhythm with no ST segment elevation or depression seen. Chest x-ray showed no acute findings. Patient was diagnosed with acute anxiety and hypertension and discharged home. She was told to continue taking her previously prescribed meds and to continually check her blood pressure multiple times throughout the day. She was told to follow-up with her PCP and 5 to 7 days for reevaluation. Return to ED precautions given. Patient understood agree with plan. Imaging Data^: CXR: Attestation: I personally reviewed and interpreted this imaging study as follows: Radiologist's impression: [address] [id number] ReportSigned Patient: Cindy Murray #: [id number]: 1975Acct#:[id number]/Sex: 45 / FADM Date: 10/30/20Loc: [facility]/Bed:Attending Dr: Ordering Provider/Ordering MD: Paul Amador MD Date of Service: 10/30/20 Procedure(s): XR chest 1V portable [id number] Accession Number(s): [id number] Report Number: [id number] PROCEDURE INFORMATION: Exam: XR Chest Exam date and time: 10/30/2020 10:20 PM Age: 45 years old Clinical indication: Shortness of breath; Additional info: Chest pain TECHNIQUE: Imaging protocol: XR of the chest. Views: 1 view. COMPARISON: CR Chest 2 views* [id number] 12/30/2016 7:47 PM FINDINGS: Lungs: Unremarkable. No consolidation. Pleural spaces: Unremarkable. No pleural effusion. No pneumothorax. Heart/Mediastinum: Unremarkable. No cardiomegaly. Bones/joints: Unremarkable. XR/XR chest 1V portable [id number] IMPRESSION: No acute findings. Dictated By:Trinity Wilson By:Trinity Wilson Date/Time:10/30/202DD/ 10 EKG Data^: EKG 1: Attestation: I personally reviewed and interpreted this EKG as follows: EKG interpretation date: 10/30/20 Interpretation: Chest X-Ray 10/30/20 22:20 IMPRESSION: No acute findings. Normal sinus rhythm, 66 bpm, no ST segment elevation or depression noted. Other EKG comments: Chest X-Ray 10/30/20 22:20 IMPRESSION: No acute findings. Lab Data: Labs: Lab Results 10/30/20 10/30/20 10/30/20 Range/Units 23:20 23:20 23:20 WBC 7.9 (4.0-10.0) 10^3/ uL RBC 4.35 (4.1-5.3) 10^6/u L Hgb 13.8 (11.5-15.3) g/dL Hct 40.8 (37.0-47.0) % MCV 93.8 (81-99) fL MCH 31.7 (28.0-34.0) pg MCHC 33.8 (30.0-36.0) g/dL RDW 12.8 (12.1-15.1) % Plt Count 266 (130-400) 10^3/c mm MPV 10.1 (7.4-10.4) fL Neut % (Auto) 62.2 % Lymph % (Auto) 24.9 % [place] % (Auto) 8.3 % Eos % (Auto) 3.4 % Baso % (Auto) 0.9 % Neut # (Auto) 4.93 (1.8-7.7) 10^3/u L Lymph # (Auto) 2.0 (0.8-4.8) 10^3/u L [place] # (Auto) 0.7 (0.2-0.9) 10^3/u L Eos # (Auto) 0.3 (0.0-0.8) 10^3/u L Baso # (Auto) 0.1 (0.0-0.1) 10^3/u L Nucleated RBC % (a uto) 0 % Nucleated RBCs # 0.0 /100WBC Sodium 132 L (136-145) mmol/L Potassium 3.7 (3.5-5.1) mmol/L Chloride 95 L (98-107) mmol/L Carbon Dioxide 18 L (22-29) mmol/L Anion Gap 22.7 H (5-19) BUN 10 (6-20) mg/dL Creatinine 0.5 (0.5-0.9) mg/dL GFR Calculation 132.2 H (90-130) mL/min Glucose 202 H (65-115) mg/dL Calculated Osmolal ity 279 L (285-295) mOsm/k g Calcium 8.5 (8.5-10.5) mg/dL Troponin T Gen 5 n g/L 17 H (0-10) ng/L 10/31/20 Range/Units 01:02 WBC (4.0-10.0) 10^3/ uL RBC (4.1-5.3) 10^6/u L Hgb (11.5-15.3) g/dL Hct (37.0-47.0) % MCV (81-99) fL MCH (28.0-34.0) pg MCHC (30.0-36.0) g/dL RDW (12.1-15.1) % Plt Count (130-400) 10^3/c mm MPV (7.4-10.4) fL Neut % (Auto) % Lymph % (Auto) % [place] % (Auto) % Eos % (Auto) % Baso % (Auto) % Neut # (Auto) (1.8-7.7) 10^3/u L Lymph # (Auto) (0.8-4.8) 10^3/u L [place] # (Auto) (0.2-0.9) 10^3/u L Eos # (Auto) (0.0-0.8) 10^3/u L Baso # (Auto) (0.0-0.1) 10^3/u L Nucleated RBC % (a uto) % Nucleated RBCs # /100WBC Sodium (136-145) mmol/L Potassium (3.5-5.1) mmol/L Chloride (98-107) mmol/L Carbon Dioxide (22-29) mmol/L Anion Gap (5-19) BUN (6-20) mg/dL Creatinine (0.5-0.9) mg/dL GFR Calculation (90-130) mL/min Glucose (65-115) mg/dL Calculated Osmolal ity (285-295) mOsm/k g Calcium (8.5-10.5) mg/dL Troponin T Gen 5 n g/L 19 H (0-10) ng/L Discharge Plan Discharge Patient Disposition: Home Clinical Impression: Acute anxiety Hypertension Qualifiers: Hypertension type: unspecified Qualified Code(s): I10 - Essential (primary) hypertension Condition: Stable Prescriptions: No Action metformin 1,000 mg tablet 1,000 mg PO BID RF: 0 metoprolol tartrate 100 mg tablet 100 mg PO .1/2 tablet tid RF: 0 triamterene-hydrochlorothiazid 37.5-25 mg capsule 1 cap PO DAILY RF: 0 aspirin 81 mg tablet,delayed release (DR/EC) 81 mg PO DAILY RF: 0 Hold Instructions: Resume on 06/29/20. mecobalamin (vitamin B12) 1,000 mcg tablet,chewable 1,000 mcg PO DAILY RF: 0 magnesium miscellaneous RF: 0 multivitamin Tablet 1 tab PO DAILY RF: 0 Adult 50 Plus Probiotic 4 billion cell capsule PO RF: 0 Discharge Orders: Discharge ED (Routine); Ordered 10/31/20 Ordered By: Yoseph Oneill Discharge Diet: Regular Discharge Activity: Increase activity as tolerated Patient Instructions: Hypertension (ED), Anxiety (ED) Activity Restrictions/Additional Instructions: Follow-up with your PCP in the next 5 to 7 days for reevaluation. Continue monitoring your blood pressures multiple times throughout the day. .Return to the ER or your medical provider if condition worsens. Please read and understand discharge instructions. Thank you for choosing [facility] for your healthcare needs today. Please realize this is an emergency room and that we are providing you with a medical screening exam and this may not be complete and all inclusive of all the testing and or work up that you may need to determine your ailment or severity of your illness. It is very important that you follow up as instructed or that you return to the Emergency Department should you have concerns or if your condition changes or worsens in any way. Coding Level of Care Code ED Harvest Worker Fruit for Jair Rojas Exam Comprehensive
[2020-10-30 23:30] LABS: Basophils # 0.1 10^3/uL (0.0-0.1); Basophils % 0.9 %; Eosinophils # 0.3 10^3/uL (0.0-0.8); Eosinophils % 3.4 %; Hematocrit 40.8 % (37.0-47.0); Hemoglobin 13.8 g/dL (11.5-15.3); Lymphocytes % 24.9 %; Mean Corpuscular HGB Conc 33.8 g/dL (30.0-36.0); Mean Corpuscular Hemoglobin 31.7 pg (28.0-34.0); Mean Corpuscular Volume 93.8 fL (81-99); Mean Platelet Volume 10.1 fL (7.4-10.4); Monocytes # 0.7 10^3/uL (0.2-0.9); Monocytes % 8.3 %; Neutrophils # 4.93 10^3/uL (1.8-7.7); Neutrophils % 62.2 %; Nucleated Red Blood Cells % 0 %; Platelet Count 266 10^3/cmm (130-400); Red Blood Count 4.35 10^6/uL (4.1-5.3); Red Cell Distribution Width 12.8 % (12.1-15.1); White Blood Count 7.9 10^3/uL (4.0-10.0)
[2020-10-30 23:35] LABS: Slide Review Slide Review Perform
[2020-10-30 23:53] LABS: Troponin T (5th) Once 17 ng/L (0-10)
[2020-10-30 23:54] LABS: Blood Urea Nitrogen 10 mg/dL (6-20); Calcium 8.5 mg/dL (8.5-10.5); Carbon Dioxide 18 mmol/L (22-29); Chloride 95 mmol/L (98-107); Glomerular Filtration Rate 132.2 mL/min (90-130); Glucose 202 mg/dL (65-115); Osmolality Calculated 279 mOsm/kg (285-295); Sodium 132 mmol/L (136-145)
[2020-10-30 23:59] LABS: Anion Gap 22.7 (5-19); Potassium 3.7 mmol/L (3.5-5.1)
[2020-10-31 00:36] VITALS: BP 142/90; PULSE 65; RESP 16; O2SAT 99
[2020-10-31 01:32] LABS: Troponin T (5th) Once 19 ng/L (0-10)
[2020-10-31 02:08] VITALS: BP 144/81; PULSE 67; RESP 18; O2SAT 99
== END 2020-10-31 02:10 | disposition home or self-care (01) ==
PROVIDERS: Emergency Medicine; Emergency Provider Physician Assistant
DX: F41.9 Anxiety disorder, unspecified (principal); I10 Essential (primary) hypertension; E11.9 Type 2 diabetes mellitus without complications; F17.200 Nicotine dependence, unspecified, uncomplicated; Z79.84 Long term (current) use of oral hypoglycemic drugs
CPT/HCPCS: 71045; 80048; 84484; 85025; 93005; 99283

== ENCOUNTER 2022-10-28 07:16 | Emergency (ER) | payer SELFPAY ==
[2022-10-28 07:22] VITALS: BP 183/75; PULSE 63; RESP 20; TEMP 36.3; O2SAT 98
--- NOTE | 2022-10-28 07:31 | XRR_ITS ---
PROCEDURE INFORMATION: Exam: XR Chest Exam date and time: 10/28/2022 7:46 AM Age: 47 years old Clinical indication: Other: CVA.No history of trauma or recent surgery is provided. TECHNIQUE: Imaging protocol: Radiologic exam of the chest. 1image(s) are provided. Views: 1 view. COMPARISON: CR XR chest 1V portable [id number] 10/30/2020 10:29 PM FINDINGS: Lungs: No lobar consolidation is appreciated. Pleural spaces: No pneumothorax or pleural effusion is appreciated. Heart/Mediastinum: The cardiomediastinal silhouette is within normal. No cardiac decompensation is appreciated. Diaphragm: There is slight asymmetric right hemidiaphragm elevation. Bones/joints: Osseous alignment is maintained.No interval displaced fracture or dislocation is appreciated. There are some chronic appearing degenerative changes of the shoulders similar. There are some chronic appearing rib deformities present for example laterally on the right. Soft tissues: No radiopaque foreign body or subcutaneous emphysema is appreciated. Other findings: There is overlying external clothing artifact. No other significant interval changes are appreciated. XR/XR chest 1V portable [id number] IMPRESSION: No lobar consolidation is appreciated.No interval acute cardiopulmonary changes are appreciated.
--- NOTE | 2022-10-28 07:38 | ECG_ITS ---
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 Measurements Intervals [place] Rate: 58 P: 89 NE: 157 QRS: 261 QRSD: 142 T: 68 QT: 470 QTc: 462 Interpretive Statements SINUS BRADYCARDIA INTRAVENTRICULAR CONDUCTION DELAY [130+ ms QRS DURATION] LATERAL MYOCARDIAL INFARCTION , OF INDETERMINATE AGE [40+ ms Q WAVE AND/OR ST/T ABNORMALITY IN I/aVL/V5/V6] Compared to ECG 10/30/2020 22:13:59 Intraventricular conduction delay now present Myocardial infarct finding now present Sinus rhythm no longer present Left-axis deviation no longer present Left bundle-branch block no longer present Electronically Signed On 10-28-2022 17:44:21 CDT by Brijesh Gilbert M.D. [id number]
[2022-10-28 07:42] LABS: Glucose Point of Care 165 mg/dL (70-110)
--- NOTE | 2022-10-28 07:43 | CTR_ITS ---
PROCEDURE INFORMATION: Exam: CT Head Without Contrast Exam date and time: 10/28/2022 7:50 AM Age: 47 years old Clinical indication: Pain; Weakness, facial; Headache not specified; Additional info: KULKARNI.No history of trauma or recent surgery is provided. TECHNIQUE: Imaging protocol: Computed tomography of the head without contrast. 285image(s) are provided. Radiation optimization: All CT scans at this facility use at least one of these dose optimization techniques: automated exposure control; mA and/or kV adjustment per patient size (includes targeted exams where dose is matched to clinical indication); or iterative reconstruction. Other technique: Axial images are available with sagittal and coronal reconstruction views. Automated dose exposure control is utilized. The DLP is 1053.58. REPORTING DATA: Count of CT and Cardiac NM exams in prior 12 months: This patient has received 0 known CTs and 0 known cardiac nuclear medicine studies in the 12 months prior to the current study. COMPARISON: No relevant prior studies available. RADIATION DOSE METRICS: Total DLP (mGy-cm): 1053.58 FINDINGS: Brain: There are mild cerebral atrophic changes overall.There are chronic periventricular white matter changes present.No mass effect or layering hemorrhage is appreciated. Malik, white matter differentiation appears maintained. Cerebral ventricles: No hydrocephalus is appreciated. Pituitary gland and sella: Partially empty sella variant is demonstrated. Paranasal sinuses: There is chronic sinusitis type appearance overall throughout most pronounced with some near complete opacification of the maxillary sinuses left more so than right. Mastoid air cells: The mastoid air cells appear well-aerated overall. Orbital cavities: Symmetric appearance of the orbital soft tissues is demonstrated. Bones/joints: Osseous alignment is maintained.No displaced fracture or dislocation is appreciated. Soft tissues: No radiopaque foreign body or subcutaneous emphysema is appreciated. Other findings: There is some motion artifact present. CT/CT head wo con* [id number] IMPRESSION: 1. No mass effect, layering hemhorrage or hydocephalus is demostrated. No acute intracranial changes are appreciated. 2. There is some chronic pansinusitis appearance overall demonstrated.
[2022-10-28 07:50] LABS: Basophils # 0.1 10^3/uL (0.0-0.1); Eosinophils # 0.2 10^3/uL (0.0-0.8); Nucleated Red Blood Cells % 0 %
[2022-10-28 07:56] LABS: Basophils % 0.8 %; Eosinophils % 2.9 %; Hematocrit 48.7 % (37.0-47.0); Hemoglobin 16.2 g/dL (11.5-15.3); Lymphocytes # 1.6 10^3/uL (0.8-4.8); Lymphocytes % 20.8 %; Mean Corpuscular HGB Conc 33.3 g/dL (30.0-36.0); Mean Corpuscular Hemoglobin 30.3 pg (28.0-34.0); Mean Corpuscular Volume 91.2 fl (81-99); Monocytes # 0.5 10^3/uL (0.2-0.9); Monocytes % 6.5 %; Neutrophils # 5.29 10^3/uL (1.8-7.7); Neutrophils % 68.6 %; Platelet Count 226 10^3/cmm (130-400); Red Blood Count 5.34 10^6/uL (4.1-5.3); Red Cell Distribution Width 13.7 % (12.1-15.1); White Blood Count 7.7 10^3/uL (4.0-10.0)
--- NOTE | 2022-10-28 07:56 | ED_ITS ---
HPI - Neuro Symptoms/Deficit General: Chief Complaint: Neuro Symptoms/Deficit Stated Complaint: stroke like symptoms Time Seen by Provider: 10/28/22 07:28 Source: patient Mode of arrival: ambulatory Limitations: no limitations History of Present Illness: 47-year-old female states that since yesterday morning around 7 AM she been having a headache she states that she had a period of speech difficulty yesterday also had some numbness down her left side she denies any focal weakness no difficulty walking she denies any vomiting or diarrhea. Denies any worsening improving factors. Associated symptoms: Reports headache(s); Deny chest pain, nausea or vomiting Review of Systems Const: Denies: fever(s) or chills Eyes: Denies: blurry vision or eye discomfort ENMT: Denies: throat pain or dental pain Card: Denies: chest pain Resp: Denies: dyspnea GI: Denies: abdominal pain, nausea, vomiting or diarrhea Musc: Denies: neck pain or back pain Skin/Breast: Denies: rash Neuro: Reports: headache(s) and numbness in extremities Psych: Denies: depression PFSH ED PFSH: Medical History Diabetes H/O pilonidal cyst Left renal stone Surgical History H/O section S/P extracorporeal shock wave therapy Family History Mother , at age 64 Cancer lung Father , at age 78 Stroke Social History Smoking and tobacco status: current every day smoker Alcohol intake: never Marital status: Current occupational status: unemployed NIH stroke score NIHSS: Level Of Consciousness - 1a: 0 Level Of Consciousness Questions - 1b: Both Correct Level Of Consciousness Commands - 1c: Both Correct Best Gaze - 2: Normal Visual Howard - 3: No Visual Loss Facial Palsy - 4: Normal Motor Arm Right - 5: No Drift Motor Arm Left - 5: No Drift Motor Leg Right - 6: No Drift Motor Leg Left - 6: No Drift Limb Ataxia - 7: Absent Sensory - 8: Normal Best Language - 9: No Aphasia Dysarthia - 10: Normal Extinction And Inattention - 11: 0 Score: Total Score: 0 Physical Exam Const: COMMON NORMALS: no acute distress, patient oriented x3 and healthy appearing HENMT: COMMON NORMALS: normocephalic and atraumatic HEAD & SCALP: normocephalic and atraumatic Eye: COMMON NORMALS: Equal, round and reactive pupils present and EOMs intact bilaterally PUPIL: Yes Equal, round and reactive pupils present Neck/C-Spine: COMMON NORMALS: full ROM and supple Chest: COMMONS NORMALS: normal inspection of the chest and normal palpation of entire chest wall Resp: COMMON NORMALS: normal respiratory effort, No retractions, No use of accessory muscles and clear to auscultation bilaterally AUSCULTATION: clear to auscultation bilaterally Cardio: COMMON NORMALS: regular rate, regular rhythm and No murmurs present (Cardio) RATE: regular rate RHYTHM: regular rhythm GI: COMMON NORMALS: Normal to inspection, nondistended, normoactive bowel sounds present, Soft to palpation, non-tender and no masses PALPATION: Yes Soft to palpation Extremity: COMMON NORMALS: normal to inspection and full ROM Neuro: COMMON NORMALS: patient oriented x3, moves all extremities and no focal motor deficits Psych: COMMON NORMALS: mental status grossly normal, Normal thought process present and cooperative THOUGHT PROCESS: Normal thought process present Skin: COMMON NORMALS: no rashes or lesions noted and no wounds GENERAL SKIN EXAM: no rashes or lesions noted Course Vital Signs: Vital signs: Vital Signs Temperature 97.3 F L 10/28/22 07:22 Pulse Rate 52 L 10/28/22 09:41 Respiratory Rate 18 10/28/22 09:41 Blood Pressure 162/70 10/28/22 09:41 Pulse Oximetry 99 10/28/22 09:41 Oxygen Delivery Me thod Room Air 10/28/22 07:22 MDM - Neuro Symptoms/Deficit Medical Decision Making Patient presents here with a headache she had also had some slurred speech yesterday and some paresthesias all since resolved she feels much improved here now her headache is gone CT along with CT is normal no signs of acute stroke she could have had a TIA she could have a migraine with aura I believe she is stable for discharge we will start her on a baby aspirin and statin get her follow-up with neurology she is return if worsening she understands agrees to plan. Lab Data 10/28/22 07:47 10/28/22 07:47 Radiology Impressions Chest X-Ray 10/28/22 07:31 IMPRESSION: No lobar consolidation is appreciated.No interval acute cardiopulmonary changes are appreciated. Head CT 10/28/22 07:43 IMPRESSION: 1. No mass effect, layering hemhorrage or hydocephalus is demostrated. No acute intracranial changes are appreciated. 2. There is some chronic pansinusitis appearance overall demonstrated. Head/Neck CTA 10/28/22 08:57 IMPRESSION: No intracranial large vessel occlusion. IMPRESSION: No evidence for carotid stenosis. REFERENCES: NASCET CRITERIA. The degree of stenosis in the cervical segment of the internal carotid artery is based on NASCET criteria. Normal is no stenosis. Mild is less than 50% stenosis. Moderate is 50-69% stenosis. Severe is 70% to 99% stenosis. Total occlusion is no detectable patent lumen. Laboratory Results WBC 7.7 10^3/uL (4.0-10.0) 10/28/22 07:47 RBC 5.34 10^6/uL (4.1-5.3) H 10/28/22 07:47 Hgb 16.2 g/dL (11.5-15.3) H 10/28/22 07:47 Hct 48.7 % (37.0-47.0) H 10/28/22 07:47 MCV 91.2 fl (81-99) 10/28/22 07:47 MCH 30.3 pg (28.0-34.0) 10/28/22 07:47 MCHC 33.3 g/dL (30.0-36.0) 10/28/22 07:47 RDW 13.7 % (12.1-15.1) 10/28/22 07:47 Plt Count 226 10^3/cmm (130-400) 10/28/22 07:47 MPV 9.0 fL (7.4-10.4) 10/28/22 07:47 Neut % (Auto) 68.6 % 10/28/22 07:47 Lymph % (Auto) 20.8 % 10/28/22 07:47 [place] % (Auto) 6.5 % 10/28/22 07:47 Eos % (Auto) 2.9 % 10/28/22 07:47 Baso % (Auto) 0.8 % 10/28/22 07:47 Neut # (Auto) 5.29 10^3/uL (1.8-7.7) 10/28/22 07:47 Lymph # (Auto) 1.6 10^3/uL (0.8-4.8) 10/28/22 07:47 [place] # (Auto) 0.5 10^3/uL (0.2-0.9) 10/28/22 07:47 Eos # (Auto) 0.2 10^3/uL (0.0-0.8) 10/28/22 07:47 Baso # (Auto) 0.1 10^3/uL (0.0-0.1) 10/28/22 07:47 Nucleated RBC % (auto) 0 % 10/28/22 07:47 Nucleated RBCs # 0.0 /100WBC 10/28/22 07:47 PT 11.80 SECONDS (12.1-14.9) L 10/28/22 07:47 INR 0.85 (0.8-1.2) 10/28/22 07:47 Sodium 140 mmol/L (136-145) 10/28/22 07:47 Potassium 4.3 mmol/L (3.5-5.1) 10/28/22 07:47 Chloride 104 mmol/L (98-107) 10/28/22 07:47 Carbon Dioxide 22 mmol/L (22-29) 10/28/22 07:47 Anion Gap 18.3 (5-19) 10/28/22 07:47 BUN 16 mg/dL (6-20) 10/28/22 07:47 Creatinine 0.6 mg/dL (0.5-0.9) 10/28/22 07:47 GFR Calculation 106.3 mL/min (90-130) 10/28/22 07:47 Glucose 184 mg/dL (65-115) H 10/28/22 07:47 POC Glucose 165 mg/dL (70-110) H 10/28/22 07:39 Calculated Osmolality 296 mOsm/kg (285-295) H 10/28/22 07:47 Calcium 9.2 mg/dL (8.5-10.5) 10/28/22 07:47 Total Bilirubin 0.4 mg/dL (0.15-1.2) 10/28/22 07:47 AST 12 U/L (0-32) 10/28/22 07:47 ALT 8 U/L (0-33) 10/28/22 07:47 Alkaline Phosphatase 77 U/L (35-105) 10/28/22 07:47 Total Protein 7.4 g/dL (6.6-8.7) 10/28/22 07:47 Albumin 4.5 g/dL (3.5-5.2) 10/28/22 07:47 Globulin 2.9 g/dL (1.3-4.6) 10/28/22 07:47 Discharge Plan Discharge Patient Disposition: Home Clinical Impression: Paresthesia, Transient cerebral ischemia Condition: Stable Prescriptions: New aspirin 81 mg capsule 81 mg PO DAILY Qty: 30 0RF atorvastatin 40 mg tablet 40 mg PO DAILY Qty: 30 0RF No Action metformin 1,000 mg tablet 1,000 mg PO BID Zyrtec 10 mg Tablet 10 mg PO DAILY PRN (Reason: Allergy Symptoms) metoprolol succinate 50 mg Tablet Extended Release 24 Hr 50 mg PO BEDTIME fluoxetine 20 mg capsule 20 mg PO BEDTIME Flonase 50 mcg/actuation [place],Suspension 2 spray INTRANASAL DAILY PRN (Reason: Allergy Symptoms) Rx Instructions: administer into each nostril Discharge Orders: Discharge ED (Routine); Ordered 10/28/22 Ordered By: Giancarlo Alves Referrals: Aly Rosales MD [Physician] - 1-3 days Sang Reyes MD [Primary Care Provider] - Discharge Diet: Advance as tolerated Discharge Activity: Resume usual activity Patient Instructions: Transient Ischemic Attack (ED) Coding Level of Care Code ED Local [employer] for Jair Rojas
[2022-10-28 08:06] VITALS: BP 175/82; PULSE 54; RESP 22; O2SAT 99
[2022-10-28 08:12] LABS: Alanine Aminotransferase 8 U/L (0-33); Albumin Level 4.5 g/dL (3.5-5.2); Alkaline Phosphatase 77 U/L (35-105); Blood Urea Nitrogen 16 mg/dL (6-20); Calcium 9.2 mg/dL (8.5-10.5); Carbon Dioxide 22 mmol/L (22-29); Chloride 104 mmol/L (98-107); Globulin 2.9 g/dL (1.3-4.6); Glomerular Filtration Rate 106.3 mL/min (90-130); Glucose 184 mg/dL (65-115); Osmolality Calculated 296 mOsm/kg (285-295); Sodium 140 mmol/L (136-145); Total Bilirubin 0.4 mg/dL (0.15-1.2); Total Protein 7.4 g/dL (6.6-8.7)
[2022-10-28 08:13] LABS: INR 0.85 (0.8-1.2)
[2022-10-28 08:14] LABS: Anion Gap 18.3 (5-19); Aspartate Amino Transferase 12 U/L (0-32); Potassium 4.3 mmol/L (3.5-5.1)
--- NOTE | 2022-10-28 08:26 | PC.PHAR ---
pt states she takes care of her own medications-[facility] last filled metformin 1000mg bid with refills on 01/07/22 pt states she just restarted taking metformin a week ago-pt states still taking prozac 20mg daily [place] last filled 09/16/22 30d/s 20mg daily pt states she had some left over from when it was filled 10/31/21-notes are made in the pharmacy comments
[2022-10-28 08:38] VITALS: BP 168/71; PULSE 54; RESP 17; O2SAT 98
--- NOTE | 2022-10-28 08:57 | CTR_ITS ---
PROCEDURE INFORMATION: Exam: CTA Head With Contrast, Arteriography Exam date and time: 10/28/2022 9:14 AM Age: 47 years old Clinical indication: Patient HX: Left sided weakness, slurred speech TECHNIQUE: Imaging protocol: Computed tomographic angiography of the head with contrast. Exam focused on the arteries. 3D rendering (Not supervised by radiologist): MIP and/or 3D reconstructed images were created by the technologist. Radiation optimization: All CT scans at this facility use at least one of these dose optimization techniques: automated exposure control; mA and/or kV adjustment per patient size (includes targeted exams where dose is matched to clinical indication); or iterative reconstruction. Contrast material: OMNI 350; Contrast volume: 100 ml; Contrast route: INTRAVENOUS (IV); REPORTING DATA: Count of CT and Cardiac NM exams in prior 12 months: This patient has received 0 known CTs and 0 known cardiac nuclear medicine studies in the 12 months prior to the current study. COMPARISON: CT head wo con* [id number] 10/28/2022 7:50 AM RADIATION DOSE METRICS: Total DLP (mGy-cm): 467.38 FINDINGS: ANTERIOR CIRCULATION: Right internal carotid artery: Intracranial segment is patent with no significant stenosis. No aneurysm. Right middle cerebral artery: No occlusion or significant stenosis. No aneurysm. Right anterior cerebral artery: No occlusion or significant stenosis. No aneurysm. Left internal carotid artery: Intracranial segment is patent with no significant stenosis. No aneurysm. Left middle cerebral artery: No occlusion or significant stenosis. No aneurysm. Left anterior cerebral artery: The A1 segment of the left anterior cerebral artery is atretic. POSTERIOR CIRCULATION: Right vertebral artery: No occlusion or significant stenosis. No aneurysm. Left vertebral artery: No occlusion or significant stenosis. No aneurysm. Basilar artery: No occlusion or significant stenosis. No aneurysm. Right posterior cerebral artery: No occlusion or significant stenosis. No aneurysm. Left posterior cerebral artery: No occlusion or significant stenosis. No aneurysm. Brain: No definite mass, mass effect, or midline shift. Cerebral ventricles: No ventriculomegaly. Paranasal sinuses: Patchy mucosal thickening and opacities noted within ethmoid air cells maxillary antra and left sphenoid sinus probably chronic. Nasal cavity: There is a rightward convexity deviation of the nasal septum. Bones/joints: Unremarkable. No acute fracture. Soft tissues: Unremarkable. PROCEDURE INFORMATION: Exam: CTA Neck With Contrast Exam date and time: 10/28/2022 9:14 AM Age: 47 years old Clinical indication: Patient HX: Left sided weakness, slurred speech TECHNIQUE: Imaging protocol: Computed tomographic angiography of the neck with contrast. 3D rendering (Not supervised by radiologist): MIP and/or 3D reconstructed images were created by the technologist. Radiation optimization: All CT scans at this facility use at least one of these dose optimization techniques: automated exposure control; mA and/or kV adjustment per patient size (includes targeted exams where dose is matched to clinical indication); or iterative reconstruction. Contrast material: OMNI 350; Contrast volume: 100 ml; Contrast route: INTRAVENOUS (IV); REPORTING DATA: Count of CT and Cardiac NM exams in prior 12 months: This patient has received 0 known CTs and 0 known cardiac nuclear medicine studies in the 12 months prior to the current study. COMPARISON: CT head wo con* [id number] 10/28/2022 7:50 AM RADIATION DOSE METRICS: Total DLP (mGy-cm): 467.38 FINDINGS: Right common carotid artery: No stenosis. No dissection or occlusion. Right internal carotid artery: There is mild calcific plaque noted at the carotid bulbs without significant stenosis. No stenosis of the extracranial segment. No dissection or occlusion. Right external carotid artery: No occlusion or stenosis of the origin. Left common carotid artery: No stenosis. No dissection or occlusion. Left internal carotid artery: There is mild calcific plaque noted at the carotid bulbs without significant stenosis. No stenosis of the extracranial segment. No dissection or occlusion. Left external carotid artery: No occlusion or stenosis of the origin. Right vertebral artery: No stenosis. No dissection or occlusion. Left vertebral artery: No stenosis. No dissection or occlusion. Soft tissues: Normal. No significant soft tissue swelling. Bones/joints: Cervical spondylosis is noted. Other findings: CT/CT angio headneck* [id number] IMPRESSION: No intracranial large vessel occlusion. IMPRESSION: No evidence for carotid stenosis. REFERENCES: NASCET CRITERIA. The degree of stenosis in the cervical segment of the internal carotid artery is based on NASCET criteria. Normal is no stenosis. Mild is less than 50% stenosis. Moderate is 50-69% stenosis. Severe is 70% to 99% stenosis. Total occlusion is no detectable patent lumen.
[2022-10-28] MEDS: aspirin 81 mg Chew Tablet 324 MG PO (09:06)
[2022-10-28 09:08] VITALS: BP 152/70; PULSE 60; RESP 15; O2SAT 99
[2022-10-28] MEDS: iohexol 350 mg/mL 500 mL Btl (per mL) IV (09:21)
[2022-10-28 09:41] VITALS: BP 162/70; PULSE 52; RESP 18; O2SAT 99
[2022-10-28 09:59] VITALS: BP 162/70; PULSE 50; RESP 16; O2SAT 99
--- NOTE | 2022-10-28 10:07 | DCPLANNER ---
Addendum entered by Maria Elena Morse 11/10/22 13:52: Patient had a follow up appointment scheduled for Saturday, December 17, 2022 at 2:[address] Rosales at neurology. Original Note: events manager had message to schedule a follow up appointment for patient with neurology. events manager sent patients information to the front office staff at neurology. Patients information will be printed and reviewed. Clinic will call patient with appointment information.
== END 2022-10-28 10:03 | disposition home or self-care (01) ==
PROVIDERS: Emergency Provider Emergency Medicine; PCP Family Medicine
DX: G45.9 Transient cerebral ischemic attack, unspecified (principal); R20.2 Paresthesia of skin; Z79.84 Long term (current) use of oral hypoglycemic drugs; E11.9 Type 2 diabetes mellitus without complications; F17.210 Nicotine dependence, cigarettes, uncomplicated
CPT/HCPCS: 36416; 70450; 70496; 70498; 71045; 80053; 82962; 85025; 85610; 93005; 99285; Q9967

== ENCOUNTER 2024-03-11 06:43 | Outpatient (CLI) | payer OTHER, SELFPAY ==
--- NOTE | 2024-03-11 06:53 | USCV_ITS ---
Trevor Cindy Age: 48 Gender: F : 1975 Exam Date: 03/11/2024 07:23 Ordering Phys: Sang Reyes MD Technologist: Eliel Ken Exam Location: [facility] [place] Indication: cva BP: 160 / 88 HR: 54 Rhythm: Sinus Technical Quality: Adequate MEASUREMENTS (Male / Female) Normal Values 2D ECHO LV Diastolic Diameter PLAX 4.2 cm 4.2 - 5.9 / 3.9 - 5.3 cm IVS Diastolic Thickness 1.6 cm 0.6 - 1.0 / 0.6 - 0.9 cm IVS Systolic Thickness 1.4 cm LVPW Diastolic Thickness 2.0 cm 0.6 - 1.0 / 0.6 - 0.9 cm LVPW Systolic Thickness 2.2 cm LVOT Diameter 2.0 cm LV Ejection Fraction 2D Teich 32.8 % LV Ejection Fraction MOD 4C 56.0 % LV Ejection Fraction MOD 2C 65.9 % LV Ejection Fraction 2C AL 64.8 % LA Diameter 3.5 cm RA Systolic Volume 4C AL 33.0 ml RA Systolic Volume 4C MOD 30.7 ml LA Sys Volume AL 49.5 cm cubed LA Sys Volume Index AL 27.0 cm cubed/m squared Aorta at Sinotubular Diameter 2.5 cm IVC Diameter 1.8 cm M-MODE LA Ao Ratio MM 1.6 AV Cusp Separation MM 1.8 cm DOPPLER AV Peak Velocity 122.3 cm/s LVOT Peak Velocity 77.0 cm/s AV Area Cont Eq vti 1.9 cm squared AV Area Cont Eq pk 2.1 cm squared MV Peak Velocity 264.3 cm/s MV Area PHT 2.0 cm squared Mitral E to A Ratio 0.7 TV Peak Velocity 142.0 cm/s TR Peak Velocity 146.0 cm/s TR Peak Gradient 8.5 mmHg TR Mean Velocity 129.0 cm/s TR Mean Gradient 6.8 mmHg TR Velocity Time Integral 41.1 cm PV Peak Velocity 96.0 cm/s RV Ejection Time 0.3 s FINDINGS Left Ventricle Left ventricle is normal in size. LV systolic function is mildly reduced with EF of 45-50%. Mild global hypokinesis. Moderate ventricular hypertrophy. Grade 1 diastolic dysfunction. Right Ventricle Normal in size and function Right Atrium Normal in size Left Atrium Normal in size Mitral Valve Structurally normal mitral valve. Trace mitral regurgitation. Aortic Valve Structurally normal aortic valve. No significant stenosis or regurgitation. Tricuspid Valve Insufficient TR jet to evaluate RVSP. Pulmonic Valve Mild pulmonic regurgitation. Pericardium Normal Aorta Normal in size IVC Appears to be normal CONCLUSIONS LV systolic function is mildly reduced with EF of 45-50%. Moderate left ventricular hypertrophy. Grade 1 diastolic dysfunction. Trace mitral regurgitation. Mild pulmonic regurgitation. No comparison studies are available. Brijesh Gilbert MD (Electronically Signed) Final Date: 12 March 2024 18:48 S
== END 2024-03-11 06:44 | disposition home or self-care (01) ==
PROVIDERS: PCP Family Medicine; Visit Provider Family Medicine
DX: I50.30 Unspecified diastolic (congestive) heart failure (principal); I63.9 Cerebral infarction, unspecified
CPT/HCPCS: 93306